=== PATIENT | male | born 1950 | race Asian ===

== ENCOUNTER → 2016-09-17 | Day surgery (SDC) | payer OTHER ==
[~2016-09-17] MED LIST: ACETAMINOPHEN PR; ASPIRIN PO; ASPIRIN81 M2 PO; CENTRUM PO; CLARINEX5 MG PO; CORDARONE200 M1 PO; COUMADIN2.5 MG PO; HYDRALAZINE HCL25 MG PO; KCL PO; LASIX20 MG PO; LIPITOR PO; LIPITOR40 MG PO; LISINOPRIL20 MG PO; METOPROLOL SUCC50 MG PO; PLAVIX PO; PRINIVIL40 MG PO; PROTONIX PO; TOPROL XL PO; VIT B-12 PO; VITAMIN D34000 UNIT PO
--- NOTE | ~2016-09-17 | OR ---
Unit #: [id number] #: [id number] Patient: KP TIDWELL V [id number] [address] [place], [place] [address] [id number] MR#: [id number] NAME: KP TIDWELL V. ROOM: Date of Procedure: 09/17/2016 Admission Date: 09/17/2016 Surgeon: iKng Saunders III, M.D. : 1950 Attending Physician: King Saunders III, M.D. Primary Care Physician: Jack Sanders M.D. OPERATIVE REPORT PREOPERATIVE DIAGNOSES History of colon cancer and polyps. POSTOPERATIVE DIAGNOSES Mild diverticulosis and hyperplastic appearing polyp at 30 cm. PROCEDURE PERFORMED Colonoscopy to ileocolic anastomosis with cold biopsy x1. ANESTHESIA MAC. SPECIMEN Colon polyp sent to Pathology. COMPLICATIONS None apparent. INDICATIONS FOR PROCEDURE This is a 66-year-old gentleman, who has undergone a prior right hemicolectomy for a colon cancer. He had a followup scope in 2013 that showed several small tubular adenomas. He is here today for surveillance colonoscopy. DESCRIPTION OF PROCEDURE After consent was obtained, the patient was brought to the endoscopy suite and placed in the left lateral decubitus position. We titrated the above sedation and I performed a rectal exam and did not feel any masses. The scope was placed within the rectal vault. Air was insufflated. I navigated the scope all the way to the ileocolic anastomosis without any difficulty. He had normal mucosa. There was no evidence of any localized recurrence in the right colon. He had some mild scattered diverticular disease. He had a hyperplastic appearing polyp at about 30 cm. This was cold biopsied and removed. It was no more than 3 mm in diameter. The scope was retroflexed within the rectum. No other masses were seen. The scope was then carefully withdrawn. The patient tolerated the procedure without any problems and returned to the recovery room in stable condition. I will have him call my office early next week for biopsy results. Dictated by... Unit #: [id number] #: [id number] Patient: KP TIDWELL V King Saunders III, M.D. VCL/modl TD: 09/17/2016 17:53 JOB #: [id number] OPERATIVE REPORT Page 1 of 1 X King Saunders III, MD PROCEDURE OPERATIVE NOTE
--- NOTE | ~2016-09-17 | EKG ---
PATIENT: KP TIDWELL UNIT #: [id number] Ventricular Rate: 93 BPM Atrial Rate: 75 BPM QRS Duration: 104 ms Q-T Interval: 368 ms QTC Calculation(Bezet): 457 ms Calculated R Warren: 39 degrees Calculated T Warren: -38 degrees Diagnosis Line: Atrial fibrillation Diagnosis Line: Septal infarct , age undetermined Diagnosis Line: Abnormal ECG Diagnosis Line: Diagnosis Line: Confirmed by ELVIS SHAY MD ([id number]) on 09/19/2016 Diagnosis Line: 2:51:02 PM INTERPRETING MD: JASPAL MERAZ
== END | disposition home or self-care (01) ==
LOC: COPS 09-16 12:00
DX: Z12.11 Encounter for screening for malignant neoplasm of colon (principal); D12.6 Benign neoplasm of colon, unspecified; K57.30 Diverticulosis of large intestine without perforation or abscess without bleeding; K21.9 Gastro-esophageal reflux disease without esophagitis; I25.10 Atherosclerotic heart disease of native coronary artery without angina pectoris; I48.91 Unspecified atrial fibrillation; Z86.73 Personal history of transient ischemic attack (TIA), and cerebral infarction without residual deficits; Z87.891 Personal history of nicotine dependence; Z85.038 Personal history of other malignant neoplasm of large intestine; Z95.5 Presence of coronary angioplasty implant and graft; Z90.49 Acquired absence of other specified parts of digestive tract; Z79.82 Long term (current) use of aspirin; Z79.899 Other long term (current) drug therapy
CPT/HCPCS: 88305; 93005